=== PATIENT | male | born 1960 | race Caucasian/White ===

== ENCOUNTER 2016-06-12 09:39 | Emergency (ER) | payer OTHER ==
[~2016-06-12] VITALS: Ht 188 cm; Wt 127.2 kg
[~2016-06-12 09:39] MED LIST: MOBIC7.5 MG PO; PERCOCET 5/31 TABLET PO
[2016-06-12] MEDS ORDERED: CLINDAMYCIN HC300 MG PO (11:40)
[2016-06-12 11:59] VITALS: BP 131/91
== END 2016-06-12 12:00 | disposition home or self-care (01) ==
LOC: EME 09:39
DX: L02.415 Cutaneous abscess of right lower limb (principal); L03.115 Cellulitis of right lower limb; Z48.01 Encounter for change or removal of surgical wound dressing; Z86.39 Personal history of other endocrine, nutritional and metabolic disease
CPT/HCPCS: 99281; 99284